=== PATIENT | female | born 1990 | race Caucasian/White ===

== ENCOUNTER 2018-06-20 01:07 | Emergency (ER) | END 2018-06-20 03:57 | disposition home or self-care (01) ==

== ENCOUNTER 2019-01-03 08:00 | Inpatient (IN) | payer MEDICAID ==
[~2019-01-03] VITALS: Ht 154.9 cm; Wt 94.3 kg
[~2019-01-03 08:00] MED LIST: ACET500C5 PO; PREN-19 PO; PREN1TAB62 PO
[2019-01-03] MEDS ORDERED: LIDOCAINE 1% (MPF) 30 ML INJ INJ PRN (09:00)
[2019-01-03] MEDS ORDERED: IBUPROFEN 600 MG TAB PO PRN (09:00)
[2019-01-03] MEDS ORDERED: METHYLERGONOVINE 0.2 MG INJ IM PRN (09:00)
[2019-01-03] MEDS ORDERED: BUTORPHANOL 2 MG INJ IV PRN (09:00)
[2019-01-03] MEDS ORDERED: MISOPROSTOL 200 MCG TAB PR PRN (09:00)
[2019-01-03] MEDS ORDERED: OXYTOCIN 30 UNITS/LR 500 ML IV PRN (09:00)
[2019-01-03] MEDS ORDERED: OXYTOCIN 30 UNITS/LR 500 ML IV SCH ×3 (09:00→15:00)
[2019-01-03] MEDS ORDERED: CARBOPROST 250 MCG INJ IM PRN (09:00)
[2019-01-03 09:17] VITALS: BP 107/59; PULSE 81; RESP 16
[2019-01-03 09:25] VITALS: Ht 154.9 cm; Wt 94.3 kg
[2019-01-03] MEDS ORDERED: AMPICILLIN 2 GM/NS (PMX) 100 ML IVPB ONE (10:30)
[2019-01-03] MEDS ORDERED: MISOPROSTOL 50 MCG CAPSULE PO ONE (10:30)
[2019-01-03] MEDS: LACTATED RINGER'S 1,000 ML IV SCH ×2 (10:34→18:45)
--- NOTE | 2019-01-03 11:57 | HP ---
Date/Time of Note Date/Time of Note DATE: 01/03/19 TIME: 11:55 OB - History Hx of Present Chief Complaint: induction of labor Estimated Due Date: January 03, 2019 : 5 Para: 4 Spontaneous : 0 Therapeutic : 0 Care: Good Care Ultrasounds: Normal mid trimester US Obstetrical Complications: None Medical Complications: None Past Family/Social History * Past Medical, Surgical, Family and Obstetric Histories reviewed from chart. GBS Status: Positive OB Admission Exam Vital Signs Vital Signs Vital Signs Date Temp Pulse Resp B/P (MAP) Pulse Ox O2 O2 Flow FiO2 Time Delivery Rate 01/03/19 98.0 81 16 107/59 Room Air 09:17 (75) Physical Exam HEENT: WNL Heart: Rhythm Normal Lungs: Clear, Equal Abdomen: WNL Extremities: Normal Reflexes: Normal Cervical Dilatation: 1cm Effacement: 50% Station: -1 Membranes: Intact Heart Rate: 120's Accelerations: Accelerations Present Decelerations: No Decelerations Varibility: Moderate Last 72 hours Lab Results CBC & BMP 01/03/19 10:54 OB Assessment/Plan Reason for admission: induction of labor Plan: Induction Induction Method: per Misoprostol Protocol ROSI MCDOWELL MD January 03, 2019 11:57
[2019-01-03] MEDS: AMPICILLIN 1 GM/NS (PMX) 50 ML IVPB SCH ×3 (14:46→22:46)
[2019-01-03] MEDS: BUTORPHANOL 2 MG INJ IV PRN (21:50)
[2019-01-04] MEDS: LACTATED RINGER'S 1,000 ML IV SCH (00:49)
[2019-01-04] MEDS: BUTORPHANOL 2 MG INJ IV PRN (00:59)
--- NOTE | 2019-01-04 02:18 | LDN ---
Date/Time of Note Date/Time of Note DATE: 01/04/19 TIME: 02:16 Delivery Summary Weeks of Gestation 40 weeks Placenta Delivered: Spontaneously Meconium: none Episiotomy: No Perineal laceration: 0 Anesthesia type: None Estimated blood loss: 300 Sponge & Needle done & correct: Yes All needle counts correct: Yes Any foreign bodies felt in the: No Delivery Information Sex Sex: male Apgars 1 Minute: 9 5 Minute: 9 Suctioning Nose & mouth suctioned at ash: No Delee suction performed: No Umbilical Cord Umbilical cord with: 3 Vessels Cord presentations: no nuchal cord Cord Blood was obtained: Yes Mother & Baby Disposition Disposition Mom & Baby to Maternity; Good: Yes ROSI MCDOWELL MD January 04, 2019 02:18
[2019-01-04] MEDS ORDERED: LACTATED RINGER'S 1,000 ML IV* SCH (03:35)
[2019-01-04 03:40] VITALS: BP 104/55; PULSE 65; RESP 18
[2019-01-04] MEDS ORDERED: CARBOPROST 250 MCG INJ IM PRN (04:00)
[2019-01-04] MEDS ORDERED: HYDROCODONE/APAP (5/325) TAB PO PRN (04:00)
[2019-01-04] MEDS ORDERED: METHYLERGONOVINE 0.2 MG INJ IM PRN (04:00)
[2019-01-04] MEDS ORDERED: OXYTOCIN 30 UNITS/LR 500 ML IV PRN (04:00)
[2019-01-04] MEDS ORDERED: DIBUCAINE 1% 30 GM OINT TOP PRN (04:00)
[2019-01-04] MEDS ORDERED: BENZOCAINE 20% 56 ML SPRAY TOP PRN (04:00)
[2019-01-04] MEDS ORDERED: ACETAMINOPHEN 325 MG TAB PO PRN (04:00)
[2019-01-04] MEDS ORDERED: WITCH HAZEL/GLYCERIN PAD PR PRN (04:00)
[2019-01-04] MEDS ORDERED: MISOPROSTOL 200 MCG TAB PR PRN (04:00)
[2019-01-04] MEDS: IBUPROFEN 600 MG TAB PO SCH ×4 (05:47→23:53)
[2019-01-04] MEDS: SENNA/DOCUSATE NA (8.6MG/50MG) TAB PO SCH ×2 (08:57→21:29)
[2019-01-04 09:10] VITALS: BP 108/67; PULSE 78; RESP 19
[2019-01-04 15:25] VITALS: BP 99/58; PULSE 90; RESP 16
[2019-01-04 20:00] VITALS: BP 109/59; PULSE 90; RESP 19
[2019-01-05 04:00] VITALS: BP 110/62; PULSE 70; RESP 18
[2019-01-05] MEDS: IBUPROFEN 600 MG TAB PO SCH ×4 (05:45→23:56)
[2019-01-05 08:00] VITALS: BP 113/58; PULSE 72; RESP 20
[2019-01-05] MEDS: SENNA/DOCUSATE NA (8.6MG/50MG) TAB PO SCH ×2 (09:22→21:06)
[2019-01-05 16:00] VITALS: BP 121/61; PULSE 72; RESP 19
[2019-01-05 19:50] VITALS: BP 96/61; PULSE 78; RESP 18
--- NOTE | 2019-01-05 22:15 | DS ---
Date/Time of Note Date/Time of Note DATE: 01/05/19 TIME: 22:15 Obstetrical Discharge Record Final Diagnosis Final Diagnosis: Term delivered Vaginal Delivery Obstetrical Delivery: Spontaneous Complications Induction: Yes Condition on Discharge Physical Assessment Voiding: Yes Bowel Movement: Yes Breast: Soft, non-tender, Filling Fundus: Firm Calf Tenderness: No Patient Condition: Stable ROSI MCDOWELL MD January 05, 2019 22:15
[2019-01-06 04:00] VITALS: BP 97/51; PULSE 67; RESP 20
[2019-01-06] MEDS: IBUPROFEN 600 MG TAB PO SCH ×2 (05:17→12:43)
[2019-01-06] MEDS ORDERED: DIPHTH/TET/ACEL PERTUSS (ADULT) 0.5 ML VIAL IM* ONE (09:00)
[2019-01-06 09:17] VITALS: BP 103/59; PULSE 67; RESP 18
[2019-01-06] MEDS: SENNA/DOCUSATE NA (8.6MG/50MG) TAB PO SCH (10:11)
--- NOTE | 2019-01-07 15:05 | DELSUM ---
Delivery Summary A-C Datetime Report Generated by CPN: 01/07/2019 15:05 DELIVERY PERSONNEL System Support Analyst: Shanna Loyola MATERNAL INFORMATION Delivery Anesthesia: None Medications in Delivery: 30 units pitocin Delivery QBL (ml): 300 Placenta Cultured: No Maternal Complications: None LABOR SUMMARY EDC: 01/03/2019 00:00 No. Babies in Womb: 1 Attempted: No Labor Anesthesia: None LABOR INFORMATION Reason for Induction: Postterm Onset of Labor: 01/03/2019 08:30 Complete Dilatation: 01/04/2019 01:50 Cervical Ripening Agents: Cytotec @ Oxytocin: Induction Group B Beta Strep: Positive Antibiotics # of Doses: X4 AMP Antibiotics Time of Last Dose: 01/03/2019 22:46 Steroids Given: None Reason Steroids Not Administered: Not Applicable MEMBRANES Membranes Rupture Method: Artificial Rupture of Membranes: 01/03/2019 19:25 Length of Rupture (hr): 6.52 Amniotic Fluid Color: Clear Amniotic Fluid Amount: Moderate Amniotic Fluid Odor: None STAGES OF LABOR Stage 1 hr: 17 Stage 1 min: 20 Stage 2 hr: 0 Stage 2 min: 6 Stage 3 hr: 0 Stage 3 min: 8 Total Time in Labor hr: 17 Total Time in Labor min: 34 VAGINAL DELIVERY Episiotomy: None Laceration Extension: N/A Laceration Type: None Laceration Repair: Not Applicable Initial Vag Sponge Count: 10 Final Vag Sponge Count: 10 Initial Vag Sharps Count: 1 Final Vag Sharps Count: 1 Sponge Count Correct: Yes; Vaginal Sweep Performed Sharps Count Correct: Yes BABY A INFORMATION Delivery Date/Time: 01/04/2019 01:56 Method of Delivery: Vaginal Born in Route : No : N/A Forceps: N/A Vacuum Extraction: N/A Shoulder Dystocia : No SHOULDER DYSTOCIA BABY A Delivery Date/Time: 01/04/2019 01:56 PRESENTATION/POSITION BABY A Presentation: Cephalic Cephalic Presentation: Vertex Vertex Position: Left Occipital Anterior Breech Presentation: N/A PLACENTA INFORMATION BABY A Placenta Delivery Time : 01/04/2019 02:04 Placenta Method of Delivery: Expressed Placenta Status: Delivered SCORES BABY A Heart Rate 1 min: >100 bpm Resp Effort 1 min: Good Cry Reflex Irritability 1 min: Cough/Sneeze/Pulls Away Muscle Tone 1 min: Active Motion Color 1 min: Body [place], Extremit Blue Resuscitation Effort 1 min: Tactile Stimulation SCORE 1 MIN: 9 Heart Rate 5 min: >100 bpm Resp Effort 5 min: Good Cry Reflex Irritability 5 min: Cough/Sneeze/Pulls Away Muscle Tone 5 min: Active Motion Color 5 min: Body [place], Extremit Blue Resuscitation Effort 5 min: Tactile Stimulation SCORE 5 MIN: 9 INFANT INFORMATION BABY A Gestational Age at Delivery: 40.0 Gestational Status: Full Term- 39- 40.6 Weeks Infant Outcome : Liveborn Condition : Stable Infant Sex: Male IDENTIFICATION/MEDS BABY A ID Band Number: [id number] ID Band Location: Right Leg; Left Arm Sensor Applied: Yes Sensor Number: [id number] Sensor Location : Cord Clamp Vitamin K Given : Not Given Erythromycin Given: Not Given WEIGHT/LENGTH BABY A Infant Birthweight (gm): 3360 Weight (lb): 7 Weight (oz): 7 Length (in): 19.00 Infant Length (cm): 48.26 CORD INFORMATION BABY A No. 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
== END 2019-01-06 13:40 | disposition home or self-care (01) | DRG 807 ==
LOC: L-D 08:36 → PP1 01-04 03:38
PROVIDERS: ADMIT Obstetrics & Gynecology; ATTEND Obstetrics & Gynecology
PROC: 3E033VJ Introduction of Other Hormone into Peripheral Vein, Percutaneous Approach (ICD-10-PCS; 2019-01-03)
PROC: 10E0XZZ Delivery of Products of Conception, External Approach (ICD-10-PCS; principal; 2019-01-05)
DX: O99.824 Streptococcus B carrier state complicating childbirth (principal); Z37.0 Single live birth; Z3A.40 40 weeks gestation of pregnancy
CPT/HCPCS: 76815; 85025; 85610; 85730; 86592; 86850; 86900; 86901; 87340; 90715; J0290; J0595; J2210; J2590; J7120